=== PATIENT | female | born 1965 | race Caucasian/White ===

== ENCOUNTER 2016-06-29 15:24 | Emergency (ER) | payer BC ==
[2016-06-29 18:02] LABS: Hematocrit 39 % (35-47); Mean Corpuscular HGB Conc 33 g/dl (31-36); Mean Corpuscular Hemoglobin 32 pg (27-31); Mean Corpuscular Volume 95 fL (80-97); Mean Platelet Volume 10 um3 (7.4-10.4); Red Cell Distribution Width 13 % (10.5-15); White Blood Count 8.7 10^3/ul (3.5-10.8)
[2016-06-29 18:03] LABS: Urine Bilirubin Negative (Negative); Urine Glucose Negative (Negative); Urine Nitrite Negative (Negative)
[2016-06-29 18:18] LABS: BUN/Creatinine Ratio 15.1 (8-20); Calcium 9.1 mg/dL (8.6-10.3); EGFR African American 90.2 (>60); EGFR Non-African American 70.1 (>60); Globulin 2.8 g/dL (2-4); Magnesium 2.2 mg/dL (1.9-2.7); Potassium 3.8 mmol/L (3.5-5.0); Total Bilirubin 0.3 mg/dL (0.2-1.0); Total Protein 6.8 g/dL (6.4-8.9)
[2016-06-29 18:37] LABS: TSH (Thyroid Stimulating Horm) 0.34 mcIU/mL (0.34-5.60)
--- NOTE | 2016-06-29 18:39 | RAD ---
HISTORY: Shortness of breath COMPARISONS: March 04, 2015 VIEWS: 2: Frontal dual-energy and lateral views of the chest. FINDINGS: CARDIOMEDIASTINAL SILHOUETTE: The cardiomediastinal silhouette is normal. SHERRILL: The sherrill are normal. PLEURA: The costophrenic angles are sharp. No pleural abnormalities are noted. LUNG PARENCHYMA: The lungs are clear. ABDOMEN: The upper abdomen is clear. There is no subphrenic gas. BONES AND SOFT TISSUES: No bone or soft tissue abnormalities are noted. OTHER: None. IMPRESSION: NO ACTIVE CARDIOPULMONARY DISEASE.
[2016-06-29] MEDS ORDERED: Furosemide TAB* 20 MG PO ONE (19:53)
--- NOTE | 2016-06-29 20:18 | ED ---
Gautam Bui Billy, scribed for Mikey Montes MD on 06/29/16 at 1644 . Complex/Multi-Sys Presentation - HPI Summary HPI Summary: Patient is a 51 year-old female coming to [facility] presenting with a gradual 10- pound weight gain over the last 3 days. She also reports associated SOB and lower extremity edema L>R. She also reports nonradiating, left anterior chest pressure. However, she denies any cardiac history. She had a similar reaction 6 months ago when she started Lyrica; her symptoms were treated with Lasix at that time. However, she denies any new medications at this time. She states that she has had ongoing nausea and vomiting for the last 3 months; she lost 28- pounds over this period of time prior to her recent weight gain. - History Of Current Complaint Chief Complaint: EDChestPainROMI Time Seen by Provider: 06/29/16 16:38 Hx Obtained From: Patient Onset/Duration: Gradual Onset, Lasting Days, Still Present Timing: Constant Severity Currently: Moderate Severity Initially: Moderate Location: Pain At: - midsternal chest pressure Character: Pressure Aggravating Factor(s): n/a Alleviating Factor(s): n/a Associated Signs And Symptoms: Positive: SOB, Edema - Allergies/Home Medications Allergies/Adverse Reactions: Allergies Allergy/AdvReac Type Severity Reaction Status Date / Time Aspirin Allergy Anaphylatic Verified 02/27/15 09:41 Shock Bupropion [From Wellbutrin] Allergy Agitation Verified 02/27/15 09:41 Clindamycin Allergy Rash Verified 02/27/15 09:41 Penicillins [PCN] Allergy Rash Verified 02/27/15 09:41 Varenicline [From Chantix] Allergy See Comment Verified 03/04/15 12:59 GLUTEN SENSITIVITY Allergy Unknown Uncoded 02/27/15 09:41 Reaction Details LATEX SENSITIVITY Allergy WITH Uncoded 02/27/15 09:41 GLOVES TURNS HANDS RED PMH/Surg Hx/FS Hx/Imm Hx Endocrine/Hematology History: Reports: Hx Thyroid Disease - HYPOTHYROIDISM Denies: Hx Diabetes Cardiovascular History: Reports: Other Cardiovascular Problems/Disorders - DVT 1997 LOWER LEFT EXTREMITY, NO PROBLEMS SINCE Denies: Hx Congestive Heart Failure, Hx Hypertension, Hx Pacemaker/ICD Respiratory History: Denies: Hx Asthma, Hx Chronic Obstructive Pulmonary Disease (COPD) GI History: Reports: Hx Gastroesophageal Reflux Disease - CONTROL WITH MEDS, Other GI Disorders - GLUTEN SENSITIVITY History: Reports: Hx Kidney Stones - 2009 Denies: Hx Renal Disease Musculoskeletal History: Reports: Hx Arthritis - 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 2004 LAPAROSCOPIC CHOLECYSTECTOMY, [facility]. 2006 LEFT ACL REPAIR, [facility]. MULTIPLE KNEE ARTHROSCOPIES, [facility]. 2005 BILATERAL CARPAL TUNNEL RELEASE, [facility] Hx Anesthesia Reactions: No - Immunization History Date of Tetanus Vaccine: 2013 Date of Influenza Vaccine: 03/04 Infectious Disease History: Yes Infectious Disease History: Denies: Traveled Outside the [place] in Last 30 Days - Family History Known Family History: Positive: Cardiac Disease, Diabetes, Other - lung cancer - Social History Alcohol Use: None Substance Use Type: Reports: None Smoking Status (MU): Current Every Day Smoker Type: Cigarettes Amount Used/How Often: 1 PPD Have You Smoked in the Last Year: Yes Review of Systems Positive: Chest Pain - chest pressure Positive: Shortness Of Breath Positive: Edema All Other Systems Reviewed And Are Negative: Yes Physical Exam - Summary Physical Exam Summary: VITAL SIGNS: Reviewed. GENERAL: Patient is a well developed and nourished female who is lying comfortable in the stretcher. Patient is not in any acute respiratory distress. HEAD AND FACE: No signs of trauma. No ecchymosis, hematomas or skull depressions. No sinus tenderness. EYES: PERRLA, EOMI x 2, No injected conjunctiva, no nystagmus. EARS: Hearing grossly intact. Ear canals and tympanic membranes are within normal limits. MOUTH: Oropharynx within normal limits. NECK: Supple, trachea is midline, no adenopathy, no JVD, no carotid bruit, no c- spine tenderness, neck with full ROM. CHEST: Symmetric, no tenderness at palpation LUNGS: Clear to auscultation bilaterally. No wheezing or crackles. CVS: Regular rate and rhythm, S1 and S2 present, no murmurs or gallops appreciated. ABDOMEN: Soft, non-tender. No signs of distention. No rebound no guarding, and no masses palpated. Bowel sounds are normal. EXTREMITIES: FROM in all major joints, no edema, no cyanosis or clubbing. NEURO: Alert and oriented x 3. No acute neurological deficits. Speech is normal and follows commands. SKIN: Dry and warm Triage Information Reviewed: Yes Vital Signs On Initial Exam: Initial Vitals Temp Pulse Resp BP Pulse Ox 96.8 F 84 16 146/73 100 06/29/16 15:38 06/29/16 15:38 06/29/16 15:38 06/29/16 15:38 06/29/16 15:38 Vital Signs Reviewed: Yes Diagnostics - Vital Signs Vital Signs Temp Pulse Resp BP Pulse Ox 06/29/16 15:38 96.8 F 84 16 146/73 100 - Laboratory Result Diagrams: 06/29/16 17:45 06/29/16 17:45 Lab Statement: Any lab studies that have been ordered have been reviewed, and results considered in the medical decision making process. - Radiology CXR Xray Interpretation: No Acute Changes Radiology Interpretation Completed By: Radiologist - EKG 1833 EKG Interpretation: NSR 71 bpm, no ST elevation Re-Evaluation - Re-Evaluation First Eval Re-Evaluation Time: 19:57 Change: Improved Complex Multi-Symp Course/Dx Assessment/Plan: Patient is a 51 year-old female coming to [facility] presenting with a gradual 10-pound weight gain over the last 3 days. She also reports associated SOB and lower extremity edema L>R. She also reports nonradiating, left anterior chest pressure. However, she denies any cardiac history. She had a similar reaction 6 months ago when she started Lyrica; her symptoms were treated with Lasix at that time. However, she denies any new medications at this time. She states that she has had ongoing nausea and vomiting for the last 3 months; she lost 28-pounds over this period of time prior to her recent weight gain. Bloodwork WNL. CXR shows no acute pathology. Therefore, I do not believe the patient developed CHF. I simply believe she developed peripheral edema. She is already taking Lasix. Today, she has not taken her Lasix, therefore she was treated with Lasix in the ED. At this time, I discussed my physical exam and test results with the patient and the need to follow up with PCP. She was instructed to return to the ED if any of her symptoms return or worsen. - Diagnoses Differential Diagnoses/HQI/PQRI: Cardiac Ischemia, Other - CHD, [place], Provider Diagnoses: Bilateral edema of lower extremity Discharge - Discharge Plan Condition: Stable Disposition: HOME Patient Education Materials: Edema (ED) Referrals: Daniel Sidhu MD [Primary Care Provider] - The documentation as recorded by the Gautam clay Billy accurately reflects the service I personally performed and the decisions made by Simon medina Walter, MD.
[2016-06-29 20:38] VITALS: BP 145/65
== END 2016-06-29 20:37 | disposition home or self-care (01) ==
LOC: ED 15:24
DX: R60.9 Edema, unspecified (principal); R07.9 Chest pain, unspecified; R06.02 Shortness of breath; F17.210 Nicotine dependence, cigarettes, uncomplicated
CPT/HCPCS: 36415; 71020; 80053; 81003; 82550; 82553; 83605; 83735; 83880; 84443; 84484; 85025; 85730; 93005; 99283; A9270-GY